=== PATIENT | male | born 1990 | race American Indian/Alaskan Native ===

== ENCOUNTER 2020-08-03 01:00 | Emergency (ER) | payer SELFPAY ==
[2020-08-03 02:00] LABS: Bilirubin,Urine NEG (Negative); Blood,Urine NEG (Negative); Color,Urine Yellow (Yellow); Mucus,Urine FEW /HPF; Protein,Urine <15 mg/dL mg/dL (Negative)
[2020-08-03 02:19] LABS: Basophils # (Auto) 0.1 K/mm3 (0.0-0.1); Basophils % (Auto) 1.2 % (0.0-1.8); Eosinophils # (Auto) 0.3 K/mm3 (0.0-0.4); Eosinophils % (Auto) 3.8 % (0.0-4.3); Hematocrit 40.5 % (35.5-45.6); Hemoglobin 13.1 gm/dl (11.8-15.2); Lymphocytes % (Auto) 24.3 % (13.4-35.0); Mean Corpuscular HGB Conc 32 % (32-34); Mean Corpuscular Volume 86 fl (84-94); Monocytes # (Auto) 0.6 K/mm3 (0.0-0.8); Monocytes % (Auto) 7.7 % (0.0-7.3); Platelet Count 265 K/mm3 (140-440); Red Blood Count 4.73 M/mm3 (3.65-5.03); Red Cell Distribution Width 13.7 % (13.2-15.2)
[2020-08-03 02:22] LABS: Amphetamine Screen,Urine PRESUMPTIVE NEGATIVE; Benzodiazepines Screen,Urine PRESUMPTIVE NEGATIVE; Cannabinoid Screen,Urine PRESUMPTIVE NEGATIVE; Cocaine Screen,Urine PRESUMPTIVE NEGATIVE; Methadone Screen,Urine PRESUMPTIVE NEGATIVE; Opiate Screen,Urine PRESUMPTIVE NEGATIVE
--- NOTE | 2020-08-03 02:22 | Emergency Department Report ---
ED General Adult HPI - General Chief complaint: Psych Stated complaint: MH EVAL Time Seen by Provider: 08/03/20 01:44 Source: patient Mode of arrival: Ambulatory Limitations: No Limitations - History of Present Illness Initial comments: The patient presents to the emergency department with a chief complaint of homicidal ideations. Patient states she is receiving text messages from people in [place] where he is from. Patient states text messages were making him so angry that he wants to go to [place] and hurt the person definitely to him. Patient has a history schizophrenia and PTSD per the patient. Patient denies suicidal ideation. Patient also denies auditory or visual hallucinations. -: unknown Severity scale (0 -10): 0 Improves with: none Worsens with: none Associated Symptoms: denies other symptoms Treatments Prior to Arrival: none - Related Data Home Medications Medication Instructions Recorded Confirmed Last Taken Cogentin 5 mg PO BID 08/03/20 08/03/20 Unknown Haldol 10 mg PO BID 08/03/20 08/03/20 Unknown Haldol 100 mg IM QMONTH 08/03/20 08/03/20 Unknown Allergies Allergy/AdvReac Type Severity Reaction Status Date / Time chlorpromazine Allergy Hives Verified 08/03/20 01:12 [From Thorazine] divalproex sodium Allergy Anaphylaxis Verified 08/03/20 01:09 [From Depakote] methylphenidate Allergy Itching Verified 08/03/20 01:12 [From Ritalin] oxcarbazepine Allergy Hives Verified 08/03/20 01:09 [From Trileptal] risperidone [From Risperdal] Allergy Anaphylaxis Verified 08/03/20 01:09 ED Review of Systems ROS: Stated complaint: MH EVAL Other details as noted in HPI Comment: All other systems reviewed and negative Constitutional: denies: chills, fever Eyes: denies: eye pain, eye discharge, vision change ENT: denies: ear pain, throat pain Respiratory: denies: cough, shortness of breath, wheezing Cardiovascular: denies: chest pain, palpitations Endocrine: no symptoms reported Gastrointestinal: denies: abdominal pain, nausea, diarrhea Genitourinary: denies: urgency, dysuria Musculoskeletal: denies: back pain, joint swelling, arthralgia Skin: denies: rash, lesions Neurological: denies: headache, weakness, paresthesias Psychiatric: homicidal thoughts. denies: anxiety, depression Hematological/Lymphatic: denies: easy bleeding, easy bruising ED Past Medical Hx - Past Medical History Previous Medical History?: Yes Hx Seizures: Yes Hx Psychiatric Treatment: Yes (Paranoid Schizophrenia, Bipolar) - Surgical History Past Surgical History?: Yes Additional Surgical History: Left jaw metal plate - Social History Smoking Status: Current Every Day Smoker - Medications Home Medications: Home Medications Medication Instructions Recorded Confirmed Last Taken Type Cogentin 5 mg PO BID 08/03/20 08/03/20 Unknown History Haldol 10 mg PO BID 08/03/20 08/03/20 Unknown History Haldol 100 mg IM QMONTH 08/03/20 08/03/20 Unknown History ED Physical Exam - General Limitations: No Limitations General appearance: alert, in no apparent distress - Head Head exam: Present: atraumatic, normocephalic - Eye Eye exam: Present: normal appearance, PERRL - ENT ENT exam: Present: mucous membranes moist - Neck Neck exam: Present: normal inspection - Respiratory Respiratory exam: Present: normal lung sounds bilaterally. Absent: respiratory distress - Cardiovascular Cardiovascular Exam: Present: regular rate, normal rhythm. Absent: systolic murmur, diastolic murmur, rubs, gallop - GI/Abdominal GI/Abdominal exam: Present: soft, normal bowel sounds. Absent: distended, tenderness - Rectal Rectal exam: Present: deferred - Extremities Exam Extremities exam: Present: normal inspection - Back Exam Back exam: Present: normal inspection - Neurological Exam Neurological exam: Present: alert, oriented X3, CN II-XII intact. Absent: motor sensory deficit - Psychiatric Psychiatric exam: Present: normal affect, normal mood - Skin Skin exam: Present: warm, dry, intact, normal color. Absent: rash ED Course Vital Signs 08/03/20 01:05 Temperature 98.1 F Pulse Rate 72 Respiratory 16 Rate Blood Pressure 124/70 O2 Sat by Pulse 93 Oximetry ED Medical Decision Making - Lab Data Lab Results 08/03/20 Range/Units 01:26 Urine Color Yellow (Yellow) Urine Turbidity Clear (Clear) Urine pH 6.0 (5.0-7.0) Ur Specific [place] 1.026 (1.003-1.030) Urine Protein <15 mg/dl (Negative) mg/dL Urine Glucose (UA) Neg (Negative) mg/dL Urine Ketones Neg (Negative) mg/dL Urine Blood Neg (Negative) Urine Nitrite Neg (Negative) Urine Bilirubin Neg (Negative) Urine Urobilinogen 2.0 (<2.0) mg/dL Ur Leukocyte Esterase Tr (Negative) Urine WBC (Auto) 10.0 H (0.0-6.0) /HPF Urine RBC (Auto) 5.0 (0.0-6.0) /HPF U Epithel Cells (Auto) 1.0 (0-13.0) /HPF Urine Mucus Few /HPF - Medical Decision Making Patient is medically cleared Awaiting mental health evaluation and possible placement Critical care attestation.: If time is entered above; I have spent that time in minutes in the direct care of this critically ill patient, excluding procedure time. ED Disposition Clinical Impression: Homicidal ideation Disposition: [id number]/[id number] PS[facility] HOSP/PSY UNIT Is pt being admited?: No Does the pt Need Aspirin: No Condition: Stable Referrals: PRIMARY CARE, [Primary Care Provider] - 3-5 Days
[2020-08-03 02:29] LABS: BUN/Creatinine Ratio 14; Blood Urea Nitrogen 17 mg/dL (9-20); Calcium 9.1 mg/dL (8.4-10.2); Hemolysis Index 7
[2020-08-03] MEDS ORDERED: SULFAMETHOXAZOLE/TRIMETHOPRIM 800/160MG DS TAB PO ONE (18:08)
[2020-08-04 08:41] VITALS: BP 109/61
--- NOTE | 2020-08-04 10:18 | Consultation ---
History of Present Illness - Reason for Consult Consult date: 08/04/20 Reason for consult: HI - History of Present Psychiatric Illness Karlos Ibarra is a 29y/o male patient who presented to the ER for homicidal thoughts against a man in [place]. During my interview with the patient he is lying down. He is calm, and cooperative. He is polite, and addresses me as "m a'am." He is a/o x 3. The patient is lucid. He states to me that "I really just needed my medicine. I've been off for a month." When asking the patient about some things he said yesterday, the patient states "yes, I did says those things." He then says, "but this gilberto sent me a bunch of mean text messages then sent me a picture of him holding my child. I was angry." He says "I've calmed down. I was just made at first." He laughs and says "even If I wanted to something, ma'am, he's way in [place]. I can't get to him." He says "even If I could. I wouldn't do that because of my child." The patient says his plan is to move back to [place]. He denies SI/HI, or any thoughts or fear of hurting hi mself or anyone else. He denies hallucinations of any kind. The patient denies any illicit drug use or alcohol. He says he "smokes cigarets" but states he doesn't need a patch. Mr. Ibarra states he was diagnosed with "paranoid schizophrenia" in the past and takes "haldol Deconoate 50mg and Cogentin." He say he last had his haldol injection "last month but hasn't had a chance to establish a doctor." He says "I just moved here from [place], but I plan to move to [place]. That's where I was before." PAST PSYCHIATRIC HISTORY Diagnoses: Paranoid schizophrenia Suicide attempts or Self-harm behavior: Once Prior psychiatric hospitalizations: Yes Substance Abuse history: Nicotine Previous psychiatric medications tried: Haldol, cogenitn Outpatient treatment: Yes, but not currently PAST MEDICAL HISTORY: None reported Family Psychiatric History: None reported or documented SOCIAL HISTORY Marital Status: Single Living Arrangements: with dad Employment Status: Disabled Access to guns/weapons: Denies Education: High school grad History of Abuse: None reported Legal History: Denies REVIEW OF SYSTEMS Constitutional: Negative for weight loss ENT: Negative for stridor Respiratory: Negative for cough or hemoptysis All other systems reviewed and are negative MENTAL STATUS EXAMINATION General Appearance: Dressed appropriately. Behavior: calm, Cooperative, polite, good eye contact Mood: "calm, good" Affect: Congruent with stated mood Speech: Normal tone, and pace Thought Process: Goal directed Suicidal Ideation: Denies Homicidal Ideation: Denies Hallucinations: Denies Delusions: None elicited Insight and Judgment: Limited Memory/Cognition: Limited ASSESSMENT Schizophrenia by history TREATMENT PLAN Please give Injection of Haldol Deconoate and Cogentin prior to discharge Cogentin 0.5mg po BID Establish outpatient psych and get continue monthly dose of Haldol IM Sitter: Defer to primary Medical: Per primary Disposition: Do not recommend acute inpatient psychiatric treatment. The patient understands that if any fear or thoughts of hurting himself or anyone else, he should seek immediate assistance, including but not limited to the crisis hotline, 911, and ER. The gearman to give the patient resources to establish outpatient psych, cognitive behavioral therapy and medication assistance. The gearman also to further discuss safety plan. The patient is to follow up with outpatient psych or primary in 7 to 14 days upon discharge. Will sign off. Thank you for this consult. Medications and Allergies Allergies Allergy/AdvReac Type Severity Reaction Status Date / Time chlorpromazine Allergy Hives Verified 08/03/20 01:12 [From Thorazine] divalproex sodium Allergy Anaphylaxis Verified 08/03/20 01:09 [From Depakote] methylphenidate Allergy Itching Verified 08/03/20 01:12 [From Ritalin] oxcarbazepine Allergy Hives Verified 08/03/20 01:09 [From Trileptal] risperidone [From Risperdal] Allergy Anaphylaxis Verified 08/03/20 01:09 Home Medications Medication Instructions Recorded Confirmed Last Taken Type Cogentin 5 mg PO BID 08/03/20 08/03/20 Unknown History Haldol 10 mg PO BID 08/03/20 08/03/20 Unknown History Haldol 100 mg IM QMONTH 08/03/20 08/03/20 Unknown History Sulfamethoxazole/Trimethoprim 1 each PO BID 10 Days #20 tablet 08/03/20 Unknown Rx [Bactrim DS TAB] Benztropine [Cogentin] 0.5 mg PO BID #60 tab 08/04/20 Unknown Rx Mental Status Exam - Vital signs Last Vital Signs Temp 98.6 F 08/04/20 08:40 Pulse 73 08/04/20 08:40 Resp 20 08/04/20 08:40 BP 109/61 08/04/20 08:40 Pulse Ox 100 08/04/20 08:40 Results Result Diagrams: 08/03/20 02:00 08/03/20 02:00 All other labs normal.
[2020-08-04] MEDS ORDERED: HALOPERIDOL DECANOATE 100 MG/1 ML INJ IM ONE (10:19)
[2020-08-04] MEDS ORDERED: BENZTROPINE 0.5 MG TAB PO ONE (10:21)
[2020-08-04] MEDS ORDERED: LIDOCAINE-MPF (1%) 10 MG/1 ML VIAL 5 ML INFILTRATI ONE (10:50)
[2020-08-04] MEDS ORDERED: AZITHROMYCIN 250 MG TAB PO ONE (10:50)
== END 2020-08-04 11:37 | disposition home or self-care (01) ==
LOC: ED 01:00 → EEVIPCON 01:00 → ED 08-04 11:37
DX: R45.850 Homicidal ideations (principal); F20.89 Other schizophrenia
CPT/HCPCS: 36415; 80048; 80307; 81001; 85025; 87086; 96372; 99285; J1631; 80320; G0480